=== PATIENT | male | born 1995 | race Caucasian/White ===

== ENCOUNTER 2021-02-21 16:35 | Emergency (ER) | payer OTHER, SELFPAY ==
[2021-02-21 17:55] VITALS: BP 00/00; PULSE 0; RESP 0; TEMP -17.7; TEMP 0
== END 2021-02-21 18:01 | disposition left against medical advice (07) ==
PROVIDERS: Emergency Provider Nurse Practitioner
DX: Z53.21 Procedure and treatment not carried out due to patient leaving prior to being seen by health care provider (principal)

== ENCOUNTER 2024-01-13 08:41 | Emergency (ER) | payer SELFPAY ==
[2024-01-13 08:50] VITALS: BP 177/102; PULSE 82; RESP 14; TEMP 36.4; O2SAT 98; BMI 34.9
--- NOTE | 2024-01-13 08:58 | XR_ITS ---
PROCEDURE INFORMATION: Exam: XR Left Wrist Exam date and time: 01/13/2024 8:58 AM Age: 28 years old Clinical indication: Pain; Wrist; Left; Additional info: Pain, soft tissue swelling x 5 days, no known trauma TECHNIQUE: Imaging protocol: Radiologic exam of the left wrist. Views: 3 or more views. COMPARISON: CR Hand L 01/13/2024 8:56 AM FINDINGS: Bones/joints: Normal. Soft tissues: Normal. IMPRESSION: No acute findings.
--- NOTE | 2024-01-13 08:58 | XR_ITS ---
PROCEDURE INFORMATION: Exam: XR Left Hand Exam date and time: 01/13/2024 8:56 AM Age: 28 years old Clinical indication: Pain; Hand; Left; Additional info: Pain, soft tissue swelling x 5 days, no known trauma TECHNIQUE: Imaging protocol: Radiologic exam of the left hand. Views: 3 or more views. COMPARISON: No relevant prior studies available. FINDINGS: Bones/joints: No acute fracture or dislocation. Soft tissues: Normal. IMPRESSION: No acute findings.
--- NOTE | 2024-01-13 09:06 | ED_ITS ---
Discharge Plan Disposition Patient Disposition: Home, Self-Care Condition: Good Prescriptions Prescriptions: New naproxen 500 mg tablet 500 mg PO BID Qty: 20 0RF Referrals Follow up/Referrals: Maurice Dominguez DO [Staff Physician] - See instructions Jm Bowles MD [Primary Care Provider] - See instructions Activity Restrictions/Add. Instructions Additional Instructions/Restrictions: You were evaluated in the emergency department today. At this time, x-rays do not demonstrate any broken bones. 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 You may also take Tylenol in addition to this as needed for pain. Follow-up closely with your primary care provider. I have also provided you with information for follow-up with orthopedics should she have continued pain. Return to the emergency department for new or worsening symptoms. Clinical Impressions Clinical Impression: Arthralgia of left wrist Stand Alone Forms Stand Alone Forms: Work/School Release Instructions Patient Instructions: DI for Wrist Strain Discharge ED Provider: Batsheva Bhatt General Adult HPI General Chief complaint: Extremity Problem,Nontraumatic Stated complaint: left arm/wrist swollen, no accident aware of Time Seen by Provider: 01/13/24 08:45 Mode of Arrival: Ambulatory Source of Information: Patient Limitations: No Limitations Description of Symptoms (Recalled from ER Triage Doc. by RN): pt c/o L wrist pain that is throbbing, sharp and 7/10. pt states this has been ongoing x4d but worsened yesterday. pt states he has minimal to no ROM. pt states the pain radiates down his hand. pt denies injury. History of Present Illness HPI narrative: This patient is a 28-year-old male who denies significant past medical history presenting to the emergency department for evaluation with concern for left wrist pain. Patient notes that this has been going on for approximately 4 days but acutely worsened yesterday. He denies any known injuries or trauma. He states that its mostly on the thumb side of his left wrist and he has limited range of motion of the wrist secondary to pain. He denies any fevers, redness, warmth, skin color changes, wounds, or other concerns that would point toward infection. He also denies any numbness or tingling. He denies any history of issues like this in the past. Related Data Previous Rx's Medication Instructions Recorded naproxen 500 mg tablet 500 mg PO BID #20 tabs 01/13/24 Allergies Allergy/AdvReac Type Severity Reaction Status Date / Time No Known Allergies Allergy Verified 01/13/24 09:03 [facility] Disclaimer: The information contained in this section may have been updated after the patient was seen, as this information can be updated by other users. Social History Smoking Status: Current every day smoker alcohol intake: never current occupational status: employed Travel in the last 8 weeks: None ROS Obtained: Yes All systems reviewed & no additional complaints except as documented Physical Exam General General appearance: alert and in no apparent distress Head Head exam: atraumatic and normocephalic Eye Eye exam: Present normal appearance, PERRL and EOMI ENT ENT exam: Present normal exam, normal oropharynx, mucous membranes moist and normal external ear exam Neck Neck exam: Present normal inspection, full ROM and trachea midline; Absent tenderness Chest Chest inspection: Present normal inspection and symmetric chest wall rise; Absent tenderness Respiratory Respiratory exam: Present normal lung sounds bilaterally; Absent respiratory distress, wheezes, stridor or accessory muscle use Cardiovascular Cardiovascular exam: Present regular rate and normal rhythm Abdominal Exam Abdominal exam: Present soft; Absent distention, tenderness or guarding Extremities Exam Extremities exam: Present tenderness (Tenderness to palpation of the left wrist joint, especially at the radial aspect. Patient also has tenderness to palpation over the left thenar eminence), normal capillary refill, joint swelling (Mild left wrist swelling with no overlying redness, warmth, or other skin color changes) and other (Neurovascularly intact distally); Absent full ROM (Limited range of motion of the left wrist secondary to pain. Range of motion of the left thumb is slightly limited secondary to pain, especially with opposition. ) or edema Back Exam Back exam: Present normal inspection and full ROM; Absent tenderness Neurological Exam Neurological exam: Present alert, oriented X3, CN II-XII intact and normal gait; Absent motor sensory deficit Psychiatric Psychiatric exam: Present normal affect and normal mood Skin Skin exam: Present warm, dry, intact and normal color; Absent rash or erythema Medical Decision Making Medical Records Medical records reviewed: Yes I reviewed the patient's medical records. [place] Inquiry Pt receiving controlled substance: No Vital Signs: 01/13/24 08:50 01/13/24 09:30 01/13/24 09:32 Temperature 97.6 F Temperature Source Oral Pulse Rate 90 71 Pulse Rate [Left] 82 Respiratory Rate 14 Blood Pressure 156/96 H 156/96 H Blood Pressure [Right Arm] 177/102 H Blood Pressure Mean [Right Arm] 127 Blood Pressure Source [Right Arm] Automatic Cuff Blood Pressure Position [Right Arm] Sitting 02 Sat by Pulse Oximetry 98 95 96 Oxygen Delivery Method Room Air 01/13/24 10:30 01/13/24 11:03 Temperature 97.6 F Temperature Source Pulse Rate 87 79 Pulse Rate [Left] Respiratory Rate 18 Blood Pressure 156/96 H 143/87 H Blood Pressure [Right Arm] Blood Pressure Mean [Right Arm] Blood Pressure Source [Right Arm] Blood Pressure Position [Right Arm] 02 Sat by Pulse Oximetry 97 Oxygen Delivery Method Lab Data Lab results reviewed: Yes I reviewed the patient's lab results. Lab Results 01/13/24 09:46: WBC 10.3, RBC 5.34, Hgb 16.5, Hct 47.9, MCV 89.6, MCH 30.9, MCHC 34.5, RDW 14.4, Plt Count 235, MPV 8.2, Neut % (Auto) 71.8, Lymph % (Auto) 19.7, [place] % (Auto) 5.3, Eos % (Auto) 1.9, Baso % (Auto) 1.4, Neut # (Auto) 7.4, Lymph # (Auto) 2.0, [place] # (Auto) 0.6, Eos # (Auto) 0.2, Baso # (Auto) 0.1, ESR 8, Sodium 140, Potassium 3.9, Chloride 106, Carbon Dioxide 28, Anion Gap 9.9, BUN 14, Creatinine 1.20, Estimated Creat Clear 168, Estimated GFR 73, Est GFR ( Amer) 89, Glucose 139 H, Calcium 9.4, Total Bilirubin 0.6, AST 54, ALT 83 H, Alkaline Phosphatase 73, C-Reactive Protein 4.7 H, Total Protein 8.0, Albumin 4.4, Globulin 3.6 H, Albumin/Globulin Ratio 1.2 01/13/24 09:46 01/13/24 09:46 Orders (Tests/Meds): ED MEDICATIONS Discontinued Medications Generic Name Dose Route Start Last Admin Trade Name Freq PRN Reason Stop Dose Admin Acetaminophen 1,000 mg 01/13/24 08:58 01/13/24 09:46 Acetaminophen 500mg Tab PO 01/13/24 08:59 1,000 mg ONCE ONE Administration Ketorolac Tromethamine 15 mg 01/13/24 08:58 01/13/24 09:46 Ketorolac 30mg/Ml Vial IV 01/13/24 08:59 15 mg ONCE ONE Administration ORDERS Category Date Time Status XR hand LT min 3V Stat Exams 01/13/24 08:58 Completed XR wrist LT min 3V Stat Exams 01/13/24 08:58 Completed CRP [C-Reactive Protein] Stat Lab 01/13/24 09:46 Completed Complete Blood Count Auto Diff Stat Lab 01/13/24 09:46 Completed Comprehensive Metabolic Panel Stat Lab 01/13/24 09:46 Completed ESR [Erythrocyte Sedimentation Rate] Stat Lab 01/13/24 09:46 Completed Medical Decision Narrative: In summary, this patient is a 28-year-old male presenting to the Emergency Department for evaluation of traumatic left wrist pain and swelling. Differential diagnoses considered include but are not limited to contusion, strain/sprain, de Quervain's tenosynovitis, fracture, cellulitis, septic arthritis, gouty arthritis. Ruling out the most morbid conditions drove assessment. On exam, the patient is resting comfortably in bed in no acute distress with reassuring vital signs. He has tenderness to palpation limited range of motion of the left wrist, however no redness, warmth, or overlying skin color changes. he is neurovascularly intact. Workup included CBC, CMP, ESR, CRP, and x-rays of the left wrist and hand. He was given IV Toradol and oral Tylenol for symptomatic improvement of pain. I independently interpreted x-ray prior to the radiologist read and noted no acute fracture. Please see their read for final interpretation. Labs were obtained that demonstrated no elevation in inflammatory markers and normal white blood cell count. Given this, I feel patient is low risk for septic arthritis. On reassessment, patient is resting comfortably and remains neurovascularly intact. Given his significant pain, especially with range of motion, I feel he would benefit from bracing for support and to limit range of motion in the setting of likely tendinitis. He was given prescription for NSAID as well as instructions for close follow-up with orthopedics should his pain persist. He was given strict return precautions and he was discharged in stable condition after all questions were answered. Critical Care Critical Care Time Critical Care Time: No
[2024-01-13 09:30] VITALS: BP 156/96; PULSE 90; O2SAT 95
[2024-01-13 09:32] VITALS: BP 156/96; PULSE 71; O2SAT 96
[2024-01-13] MEDS: ACETAMINOPHEN 500MG TAB 1000 MG PO (09:46)
[2024-01-13] MEDS: KETOROLAC 30MG/ML VIAL 15 MG IV (09:46)
[2024-01-13 09:55] LABS: Basophils # 0.1 K/mm3 (0-0.2); Basophils % 1.4 % (0.1-2.0); Eosinophils # 0.2 K/mm3 (0.0-0.4); Eosinophils % 1.9 % (0.1-12.0); Hematocrit 47.9 % (42.0-52.0); Hemoglobin 16.5 g/dL (14.1-18.0); Lymphocytes % 19.7 % (10-50); Mean Corpuscular HGB Conc 34.5 g/dL (31.8-35.4); Mean Corpuscular Hemoglobin 30.9 pg (27.0-31.2); Mean Corpuscular Volume 89.6 fl (80-94); Mean Platelet Volume 8.2 fl (7.4-10.4); Monocytes # 0.6 K/mm3 (0.1-1.0); Monocytes % 5.3 % (1.7-9.3); Neutrophils # 7.4 K/mm3 (1.8-7.8); Neutrophils % 71.8 % (37.0-80.0); Platelet Count 235 K/mm3 (142-424); Red Blood Count 5.34 M/mm3 (4.60-6.20); Red Cell Distribution Width 14.4 % (11.5-17.5); White Blood Count 10.3 K/mm3 (4.8-10.8)
[2024-01-13 10:01] LABS: Chloride 106 mmol/L (98-107)
[2024-01-13 10:02] LABS: Potassium 3.9 mmoL/L (3.5-5.1); Sodium 140 mmol/L (136-145)
[2024-01-13 10:04] LABS: Alanine Aminotransferase 83 U/L (12-78); Albumin Level 4.4 g/dl (3.5-5.0); Albumin/Globulin Ratio 1.2 (1.1-1.8); Alkaline Phosphatase 73 U/L (38-126); Anion Gap 9.9 mEq/L (5-15); Aspartate Amino Transferase 54 U/L (17-59); Bilirubin,Total 0.6 mg/dl (0.2-1.3); Blood Urea Nitrogen 14 mg/dl (9-20); Carbon Dioxide 28 mmol/L (22.0-30.0); Creatinine Clearance Estimated 168 mL/min (50-200); Estimated Glomerular Filt Rate 73 ml/min (>60); GFR (African American) 89 ML/MIN (>60); Globulin 3.6 g/dL (1.3-3.2)
[2024-01-13 10:05] LABS: Calcium 9.4 mg/dl (8.4-10.2); Glucose 139 mg/dl (74-100)
[2024-01-13 10:10] LABS: C-Reactive Protein 4.7 mg/L (0-4)
[2024-01-13 10:30] VITALS: BP 156/96; PULSE 87; O2SAT 97
[2024-01-13 10:47] LABS: Erythrocyte Sedimentation Rate 8 mm/hr (0-15)
[2024-01-13 11:03] VITALS: BP 143/87; PULSE 79; RESP 18; TEMP 36.4; O2SAT 99
== END 2024-01-13 11:05 | disposition home or self-care (01) ==
PROVIDERS: Emergency Provider Emergency Medicine; PCP Family Medicine
DX: M25.532 Pain in left wrist (principal); F17.210 Nicotine dependence, cigarettes, uncomplicated
CPT/HCPCS: 73110; 73130; 80053; 85025; 85651; 86140; 96374; 99284; J1885